=== PATIENT | female | born 1990 | race Caucasian/White ===

== ENCOUNTER 2016-05-15 17:40 | Outpatient (CLI) | payer MEDICAID | END 2016-05-15 19:30 | disposition home or self-care (01) | LOC: BC 17:40 → 2LDRP 17:40 → BC 19:30 → 2LDRP 19:30 → BC 19:35 → 2LDRP 19:35 | DX: O46.93 Antepartum hemorrhage, unspecified, third trimester (principal); Z3A.36 36 weeks gestation of pregnancy ==